=== PATIENT | female | born 1980 | race Caucasian/White ===

== ENCOUNTER 2023-03-09 19:09 | Emergency (ER) | payer OTHER ==
[~2023-03-09] VITALS: Ht 172.7 cm; Wt 113.4 kg
--- NOTE | 2023-03-09 19:22 | NUR ---
[id number] HOME C/O SEIZURE 30 MINS AGO. LASTING 1.5-2 MINS PER .PT SEIZED ON TOILET WITHOUT FALL. HX OF SZR X1 LAST WEEK DISCHARGED FROM [facility] THIS AM WITH NORMAL WORKUP. +ORAL TRAUMA AND INCONTINENCE. HEADACHE WITHOUT TRAUMA. PLACED ON 25M KEPPRA BID WITH NO MISSED DOSES STARTED YESTERDAY. PT AWAKE X3 UPON EMS ARRIVAL AND ACTING APPOPRIATE UPON ASSESSMENT. PLACED ON MONITOR AND V/S WNL.
--- NOTE | 2023-03-09 19:23 | NUR ---
SEIZURE PRECAUTIONS IN PLACE
--- NOTE | 2023-03-09 19:24 | NUR ---
PROVIDED PT WITH URINE CUP; AWAITING URINE SAMPLE
[2023-03-09] MEDS ORDERED: LEVETIRACETAM (500MG) 1,000 MG in IV NS 0.9% 100 ML IV SCH (19:30)
[2023-03-09] MEDS ORDERED: LEVETIRACETAM (500MG) 500 MG/5 ML VIAL IV ONE (19:40)
--- NOTE | 2023-03-09 19:40 | NUR ---
OSIEL EPRP PAGED PER DR LU.
[2023-03-09] MEDS ORDERED: ONDANSETRON HCL/PF 4 MG/2 ML VIAL ONE (20:37)
[2023-03-09] MEDS ORDERED: HYDROCODONE/APAP 10/325MG TABLET PO ONE (21:00)
[2023-03-09] MEDS ORDERED: ONDANSETRON HCL/PF 4 MG/2 ML VIAL IV ONE (21:00)
[2023-03-09] MEDS ORDERED: HYDROCODONE/APAP 10/325MG TABLET ONE (21:01)
--- NOTE | 2023-03-09 21:32 | NUR ---
Patient discharged to home in stable condition. Written and verbal after care instructions given. Patient verbalizes understanding of instruction.
[2023-03-09 21:33] VITALS: BP 145/80
== END 2023-03-09 21:30 | disposition home or self-care (01) ==
LOC: ER 19:11
DX: R56.9 Unspecified convulsions (principal)
CPT/HCPCS: 99284; 96365; 96375; J2405; J7030 ×2; A4223; J1953